=== PATIENT | male | born 1940 | race Caucasian/White ===

== ENCOUNTER 2022-03-01 09:30 | Day surgery (SDC) | payer MEDICARE, BC ==
[~2022-03-01] VITALS: Ht 185.4 cm; Wt 106.4 kg
[2022-03-01] VITALS (9 sets, daily range): BP systolic 146–159; BP diastolic 55–75; PULSE 60–79; TEMP 97.7–98.2
[~2022-03-01 09:30] MED LIST: BENICAR HCT 251 TAB PO; COUMADIN 77.5 MG/TAB PO; GLIPIZIDE5 MG PO; HCTZ 25MG25 MG PO; METFORMIN1000 MG PO; VYTORIN 10 MG-21 TAB PO; WARFARIN SOD5 MG PO
[2022-03-01] MEDS ORDERED: BENICAR40 MG PO (11:52)
[2022-03-01] MEDS ORDERED: NORVASC 5MG5 MG/TAB PO (11:53)
[2022-03-01] MEDS ORDERED: PROTONIX 40MG T40 MG PO (11:54)
[2022-03-01] MEDS ORDERED: COUMADIN 5MG5 MG/TAB PO (11:57)
[2022-03-01] MEDS ORDERED: CYMBALTA 20MG20 MG PO (11:58)
[2022-03-01] MEDS ORDERED: FLOMAX 0.40.4 MG/CAP PO (11:59)
[2022-03-01] MEDS ORDERED: ARICEPT 5MG PO (11:59)
[2022-03-01] MEDS ORDERED: TRULICITY1.5 MG/0.5 SQ (12:00)
[2022-03-01] MEDS ORDERED: COLESTID 1GM1 G PO (12:02)
[2022-03-01] MEDS ORDERED: VITAMIND3 5000 PO (12:03)
[2022-03-01 12:22] LABS: INR 1.2 (0.8-3.0); PROTHROMBIN TIME 14.1 SECONDS (9.7-12.8)
--- NOTE | 2022-03-01 12:35 | NUR ---
Initial visit; Patient and his thanked Home Extension Agent for offering prayer and assurance of good care prior to his surgical procedure. Home Extension Agent wished Kristen well and God's blessings.
--- NOTE | 2022-03-01 21:49 | NUR ---
Patient assessed around 2034. Alert and oriented to self. at bedside. Denies having pain and discomfort. Peripheral IV to left forearm with IV fluids running per orders. Has CBI running, was clear, decreased to slow rate. Given PRN Levsin and Melatonin. Voices no questions, needs, or concerns at this time. In bed with call light within reach. High fall risk precautions in place. Bed alarm on.
[2022-03-02 00:10] VITALS: BP 161/71; PULSE 63; TEMP 97.7
[2022-03-02 04:35] VITALS: BP 159/33; PULSE 57; TEMP 97.9
--- NOTE | 2022-03-02 06:09 | NUR ---
Continues on CBI per orders, running slowly. Urine clear, yellow, with occasional sediment. Denies pain and discomfort. Pulled out IV site to left forearm. New IV site started to right forearm. Voices no questions, needs, or concerns at this time. In bed with call light within reach. High fall risk precautions in place. Bed alarm on. remains at bedside.
[2022-03-02 07:24] VITALS: BP 146/75; PULSE 52; TEMP 97.9
--- NOTE | 2022-03-02 08:10 | NUR ---
Patient resting in bed with his at his side. Orders obtained for larkin to be DC. Urine output clear yellow, he tolerated larkin removeal. 6 bottle routine reviewed. Patient voided x1 pink clear output. Breakfast ordered, denies nausea. Will monitor.
--- NOTE | 2022-03-02 09:20 | NUR ---
JOSE met with the patient and his , Gricel (ph#[phone]), to discuss discharge plan. The patient lives in [place] with his . He reports independence with ADLs and has a cane available, if needed. The patient's PCP is Dr. Ronnie Black and he receives his medications from [facility]. The patient does not have a DPOA-HC and he was not interested in completing one at this time. The patient plans to return home with his upon discharge. No additional needs at this time. *Discharge plan: home with *
--- NOTE | 2022-03-02 12:15 | NUR ---
Patient completed 6 bottle routine. Chauncey/orange output. rounded. Discharge orders obtained. Patient dressed & and his to take him home. Patient removed his INT himself. All discharge paperwork reviewed including, diet, activity restictions, holding coumadin until Saturday & follow up appt. patient sent with briefs in case of incontienence. He has been voiding using urinal. He tolerated lunch prior to discharge. Patient and deny questions or concerns. Patient wheeled out with all belogings.
--- NOTE | 2022-03-02 16:46 | NUR ---
Cee: [facility] Situation: perfusionist stopped by room on rounds Background: Pt was resting and content Assessment: Pt has no needs right now, pt appreciated visit Recommendation: perfusionist will follow up as needed
== END 2022-03-02 13:12 | disposition home or self-care (01) ==
LOC: SDCO 09:30 → SURG 14:59 → SDCO 03-02 13:12
PROVIDERS: Nurse Anesthetist, Certified Registered
DX: N40.1 Benign prostatic hyperplasia with lower urinary tract symptoms (principal); R39.15 Urgency of urination; I10 Essential (primary) hypertension; I48.91 Unspecified atrial fibrillation; Z87.891 Personal history of nicotine dependence
CPT/HCPCS: OP; J0690; J1100; J1815; J2704; J3010; J7120

== ENCOUNTER 2022-06-05 09:48 | Day surgery (SDC) | payer MEDICARE, BC ==
[2022-06-05] VITALS (10 sets, daily range): BP systolic 136–157; BP diastolic 54–78; PULSE 31–93; TEMP 97–974
[~2022-06-05] VITALS: Ht 188 cm; Wt 103.4 kg
[~2022-06-05 09:48] MED LIST changes: +ARICEPT 5MG PO; +BENICAR40 MG PO; +COLESTID 1GM1 G PO; +COUMADIN 5MG5 MG/TAB PO; +CYMBALTA 20MG20 MG PO; +FLOMAX 0.40.4 MG/CAP PO; +NORVASC 5MG5 MG/TAB PO; +PROTONIX 40MG T40 MG PO; +TRULICITY1.5 MG/0.5 SQ; +VITAMIND3 5000 PO
[2022-06-05] MEDS ORDERED: ARICEPT10 MG PO (12:40)
[2022-06-05] MEDS ORDERED: COUMADIN 77.5 MG/TAB PO (12:41)
[2022-06-05] MEDS ORDERED: ZITHROMAX 250M250 MG PO (12:43)
--- NOTE | 2022-06-05 15:18 | NUR ---
Pt up from OR, drowsy but arousable, answers questions appropriately. Denies pain and nausea. Alves in place, scrotal hermelinda in place with kerlix dressing, scant bloody drainage. Scrotal support in place. 2L of oxygen in place, same dosage as home oxygen. VSS. Assessment complete, med rec reviewed, medications given. Bed in lowest position wiht call light within reach, bed alarm activated.
--- NOTE | 2022-06-05 21:31 | NUR ---
Patient A/Ox3, head to toe assessment done, see shift assessment, denies pain or discomfort, at bedside, with scrotal hermelinda drain in place with kerlix dressing, scrotal support in place, with 1/2 NS running at 60cc/hr infusing well on left hand, SCD's on, denies further needs, call light and personal items within reach, will continue to monitor.
[2022-06-06 00:32] VITALS: BP 156/59; PULSE 55; TEMP 97.7
[2022-06-06 04:17] VITALS: BP 167/64; PULSE 89; TEMP 97.4
--- NOTE | 2022-06-06 07:15 | NUR ---
Shift report received from car sweeper RN.
[2022-06-06 07:46] VITALS: BP 169/70; PULSE 45; TEMP 97.6
--- NOTE | 2022-06-06 08:33 | NUR ---
SBA provided as pt transferred from bed to recliner at his request to eat breakfast. Larkin patent to drainage w/ clear, yellow urine. Scant amt of dried blood noted to larkin site - stat lock applied to right upper thigh to prevent pulling on larkin. [place] drain noted to left scrotum w/ little to no drainage noted on gauze. Pt is alert and oriented and answers questions appropriately. Denies pain or discomfort. Call received from Dr. Caty cuellar to saline lock IV and remove [place] drain. Pt and informed and they had no further questions.
--- NOTE | 2022-06-06 09:10 | NUR ---
JOSE met with the patient and his , Gricel (ph#[phone]), to discuss discharge plan. The patient lives in [place] with his . Gricel reports that the patient needs some assistance with ADLs and has a cane. Gricel helps him, when needed. The patient's PCP is Dr. Ronnie Black and he obtains his medications from [facility]. The patient does not have a DPOA-HC in EMR, but Gricel states that they just completed DPOA-HC with a platen builder up and that the patient designated her and then their kids. The patient plans to return home with his upon discharge. No additional needs at this time. *Discharge plan: home with *
--- NOTE | 2022-06-06 09:29 | NUR ---
Pt ate 100% of breakfast independently. CGA provided as he transferred from recliner to bed at his request. Alves continues to drain clear, yellow urine. SCD's on. remains at the bedside. Pt continues to deny pain/discomfort. Call light is in his reach. Bed alarm is on.
--- NOTE | 2022-06-06 10:19 | NUR ---
Initial visit attempt; Corn Cutter Operator spoke with patient's , offering God's blessings to her and asked that she relay a message to Kristen that Spiritual Care is available to him while he is here. She stated that she would definitely let him know of the presence of Corn Cutter Operator Services at our hospital.
--- NOTE | 2022-06-06 10:31 | NUR ---
[place] drain removed per order. Sutures x 2 removed, drain pulled w/out difficulty. Pressure dressing applied. Scrotal support reapplied. Sutures to scrotum are CDI. Pt. denies pain/discomfort. remains at the bedside. No further needs. Call light within reach. Bed alarm on.
[2022-06-06 11:20] VITALS: BP 170/67; PULSE 54; TEMP 97.9
--- NOTE | 2022-06-06 12:14 | NUR ---
INT Lt. hand pulled out mistakenly by the pt. Unsuccessful at attempt #1 to replace IV. Will try again after pt eats lunch. Pt continues to deny pain/discomfort. Dressing to left scrotum is CDI. Scrotal support is on. Alves draining clear, yellow urine. and daughter at the bedside. Pt denies other needs. Call light is in his reach.
--- NOTE | 2022-06-06 12:30 | NUR ---
20G placed in right forearm by HEIDI Owen.
--- NOTE | 2022-06-06 13:25 | NUR ---
DC summary reviewed with the pt and his . They had no further questions. Belongings were gathered by the . They are waiting for their daughter to return from outside pharmacy for discharge.
--- NOTE | 2022-06-06 14:38 | NUR ---
Leg bag applied per order. Pt escorted off unit via wheelchair was accompanied by his and daughter.
== END 2022-06-06 14:39 | disposition home or self-care (01) ==
LOC: SDCO 09:48 → SURG 15:00 → SDCO 06-06 14:39
DX: N45.3 Epididymo-orchitis (principal); Z87.891 Personal history of nicotine dependence
CPT/HCPCS: OP; A9284; J0360; J0690; J0696; J1100; J1815; J1885; J2405; J2704; J3010; J7120